=== PATIENT | female | born 1960 | race Caucasian/White ===

== ENCOUNTER 2018-08-25 07:22 | Outpatient (CLI) | payer BC ==
--- NOTE | 2018-08-25 10:01 | RAD ---
RIGHT SHOULDER TWO VIEWS: HISTORY: Shoulder impingement. 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 There are arthritic changes of the glenohumeral joint space. There has either been resection or resorption of the distal clavic le. IMPRESSION: Arthritic changes of the shoulder, as discussed above. POS: [facility]
== END 2018-08-25 07:23 | disposition home or self-care (01) ==
LOC: RAD 07:22
PROVIDERS: ATTEND Orthopaedic Surgery
DX: M75.41 Impingement syndrome of right shoulder (principal); M19.011 Primary osteoarthritis, right shoulder

== ENCOUNTER 2018-09-12 11:14 | Day surgery (SDC) | payer BC ==
[2018-09-11 11:51] VITALS: BMI 32.0
[2018-09-12] MEDS ORDERED: Lidocaine 1% PF 5 ML VIAL ONE (13:52)
[2018-09-12] MEDS ORDERED: Midazolam HCl 2 mg/2 ml Vial ONE (15:22)
[2018-09-12] MEDS ORDERED: Fentanyl 100 MCG/2 ML VIAL ONE (15:22)
--- NOTE | 2018-09-12 16:06 | RAD ---
RIGHT SHOULDER ARTHROGRAM: Date: 09-12-18 History: Right shoulder pain. Fluoroscopy: Fluoroscopy time 0.6 minutes with total dose of 32.6 mGy*cm^2. Technique: This examination was performed with conscious sedation which [facility] Informed consent was obtained prior to conscious sedation. An area overlying the superior one -third of the right glenohumeral joint was marked and the area of meticulously prepped and draped in usual sterile fashion. Skin and subcutaneous tissues were infiltrated with buffered 1% Lidocaine for local anesthesia. A 22 gauge spinal needle was advanced to the level of the right glenohumeral joint. Inter stylet was removed and contrast was injected demonstrating a free flow of contrast from the tip of the needle. As a results approximately 12 ml of a mixture consisting of 2 ml of gadolinium contra st, 8 ml of Omniopaque 300 contrast, sterile saline, Lidocaine, and a small amount of epinephrine wer e instilled into the right glenohumeral joint under fluoroscopic control. The needle was removed and hemostasis was achieved with direct pressure. Patient tolerated the proced ure well and without immediate complication. IMPRESSION: 1. Technically successful right shoulder arthrogram. 2. 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 3. 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 4. Technically successful right shoulder arthrogram. POS: [facility]
--- NOTE | 2018-09-12 17:07 | MRI ---
RIGHT SHOULDER MRI WITH IV POST GADOLINIUM ARTHROGRAPHIC CONTRAST: 09/12/18 HISTORY: Pain and impingement syndrome. Large body habitus. Exam done under full sedation. There are some subchondral cystic changes involving the greater tuberosity with probable small unders urface tear. There is some altered signal within the supraspinatus and infraspinatus tendons evidence for some tendinopathy but no evidence for a complete full thickness or retracted tear. Subscapularis tendon and biceps tendons appear intact. No evidence for significant labral tear. IMPRESSION: Supraspinatus and infraspinatus tendinopathy with some subchondral cystic changes of the greater tube rosity but no evidence for complete full thickness or retracted rotator cuff tear. Unremarkable appea ring labrum. No significant acute osteochondral defect. Rotator cuff muscles are within normal limits of signal and volume. POS: [facility]
== END 2018-09-12 17:20 | disposition home or self-care (01) ==
LOC: SDC/OP 11:14
PROVIDERS: ATTEND Radiology Vascular & Interventional Radiology
PROC: BP181ZZ Fluoroscopy of Right Shoulder using Low Osmolar Contrast (ICD-10-PCS; principal; 2018-09-12)
DX: M75.81 Other shoulder lesions, right shoulder (principal); Z88.5 Allergy status to narcotic agent; Z79.82 Long term (current) use of aspirin; Z79.84 Long term (current) use of oral hypoglycemic drugs; Z79.899 Other long term (current) drug therapy
CPT/HCPCS: 23350; J2001; J2250; J3010

== ENCOUNTER 2021-05-11 09:38 | Outpatient (CLI) | payer BC | END 2021-05-11 09:39 | disposition home or self-care (01) | LOC: CT 09:38 | PROVIDERS: ATTEND Student in an Organized Health Care Education/Training Program | DX: K21.9 Gastro-esophageal reflux disease without esophagitis (principal) | CPT/HCPCS: 74220 ==

== ENCOUNTER 2021-11-13 06:58 | Day surgery (SDC) | payer BC ==
[2021-11-10 13:32] VITALS: BMI 30.5
[2021-11-13 08:35] LABS: Anion Gap 16 mmol/L (10-20); BUN (Urea Nitrogen) 22 mg/dL (9.8-20.1); Calc. Creatinine Clearance 61 mL/min (70-130); Calcium 9.4 mg/dL (7.8-10.44); Carbon Dioxide 22 mmol/L (23-31); Cardiac Risk 4.4 (Less than 4.5); Chloride 105 mmol/L (98-107); Cholesterol 184 mg/dl (< 200 Desired); Glucose 134 mg/dL (80-115); HDL Cholesterol 42 mg/dL (>60 Neg Risk); LDL Cholesterol, Calculated 108 mg/dL; Potassium 4.4 mmol/L (3.5-5.1); Sodium 139 mmol/L (136-145); Triglycerides 169 mg/dL (Less than 150)
[2021-11-13] MEDS ORDERED: Diazepam 5 MG TAB ONE (08:54)
[2021-11-13] MEDS ORDERED: Fentanyl 100 MCG/2 ML VIAL ONE (09:26)
[2021-11-13] MEDS ORDERED: Midazolam HCl 2 mg/2 ml Vial ONE (09:26)
[2021-11-13] MEDS ORDERED: Iopamidol 370 76% 100 ML VIAL ONE (09:44)
== END 2021-11-13 14:23 | disposition home or self-care (01) ==
LOC: SDC 06:58
PROVIDERS: ATTEND Internal Medicine Cardiovascular Disease
PROC: B2111ZZ Fluoroscopy of Multiple Coronary Arteries using Low Osmolar Contrast (ICD-10-PCS; principal; 2021-11-13)
PROC: 4A023N7 Measurement of Cardiac Sampling and Pressure, Left Heart, Percutaneous Approach (ICD-10-PCS; principal; 2021-11-13)
DX: I25.10 Atherosclerotic heart disease of native coronary artery without angina pectoris (principal); I42.0 Dilated cardiomyopathy; I11.0 Hypertensive heart disease with heart failure; I50.9 Heart failure, unspecified; E11.9 Type 2 diabetes mellitus without complications; E78.2 Mixed hyperlipidemia; K21.9 Gastro-esophageal reflux disease without esophagitis; Z79.82 Long term (current) use of aspirin; Z79.84 Long term (current) use of oral hypoglycemic drugs; Z79.899 Other long term (current) drug therapy; Z88.5 Allergy status to narcotic agent; Z87.891 Personal history of nicotine dependence
CPT/HCPCS: 80048; 80061; 93458; 99152; J2250; J3010

== ENCOUNTER 2021-11-16 12:23 | Outpatient (CLI) | payer BC ==
[2021-11-16 23:32] LABS: SARS-CoV-2 PCR by NAA Not Detected (NotDetected)
== END 2021-11-16 12:24 | disposition home or self-care (01) ==
LOC: LABBT 12:23
PROVIDERS: ATTEND Thoracic Surgery (Cardiothoracic Vascular Surgery)
DX: I25.10 Atherosclerotic heart disease of native coronary artery without angina pectoris (principal); Z20.822 Contact with and (suspected) exposure to COVID-19
CPT/HCPCS: U0003; U0005

== ENCOUNTER 2021-11-16 15:30 | Inpatient (IN) | payer BC ==
[2021-11-16 11:10] VITALS: BMI 30.5
[2021-11-17] MEDS ORDERED: Dexamethasone 4 mg/ml Vial ONE (06:17)
[2021-11-17] MEDS ORDERED: EPINEPHrine 1 MG/ML AMP ONE (06:17)
[2021-11-17] MEDS ORDERED: Bupivacaine PF 0.5% 30 ML VIAL ONE (06:17)
[2021-11-17] MEDS ORDERED: Albumin 5% 500 ML ONE (06:17)
[2021-11-17] MEDS ORDERED: Midazolam HCl 5 mg/5 ml Vial ONE (06:45)
[2021-11-17] MEDS ORDERED: Fentanyl 250 MCG/5 ML VIAL ONE (06:45)
[2021-11-17] MEDS ORDERED: Lidocaine 1% MPF 2 ML VIAL ONE (06:57)
[2021-11-17] MEDS ORDERED: Heparin 10,000 UNITS/1 ML VIAL 30,000 UNITS in Sodium Chloride 0.9% 1,000 ML FS SCH (07:00)
[2021-11-17] MEDS ORDERED: Midazolam HCl 2 mg/2 ml Vial ONE (07:01)
[2021-11-17] MEDS ORDERED: ceFAZolin (BATCH) 2 GM/100 ML BAG ONE (07:14)
[2021-11-17] MEDS ORDERED: Mannitol 12.5 GM/50 ML ONE (07:43)
[2021-11-17] MEDS ORDERED: Magnesium Sulfate 1 GM/2 ML VIAL ONE (07:43)
[2021-11-17] MEDS ORDERED: DOPamine 400 MG/10 ML VIAL ONE (07:43)
[2021-11-17] MEDS ORDERED: Vecuronium 10 MG VIAL ONE (07:43)
[2021-11-17] MEDS ORDERED: Heparin 5,000 UNITS/ML VIAL ONE (07:43)
[2021-11-17] MEDS ORDERED: Protamine Sulfate 50 MG/5 ML VIAL ONE (07:43)
[2021-11-17] MEDS ORDERED: Sodium Bicarb 50 MEQ/50 ML Abboject 8.4% SYRINGE ONE (07:43)
[2021-11-17] MEDS ORDERED: Aminocaproic Acid 5 GM/20 ML VIAL ONE (07:43)
[2021-11-17] MEDS ORDERED: Papaverine 60 MG/2 ML VIAL ONE (07:43)
[2021-11-17] MEDS ORDERED: Thrombin 5000 UNITS/5 ML VIAL ONE (07:43)
[2021-11-17] MEDS ORDERED: Labetalol HCl 100 MG/20 ML VIAL ONE (07:43)
[2021-11-17] MEDS ORDERED: Calcium Chloride 1 GM/10 ML Abboject SYRINGE ONE (07:43)
[2021-11-17] MEDS ORDERED: Cardioplegic Soln 1,000 ML BAG ONE (07:43)
[2021-11-17] MEDS ORDERED: Lidocaine 1% PF 5 ML VIAL ONE (07:43)
[2021-11-17] MEDS ORDERED: PROPOFOL 200 MG/20 ML VIAL ONE (07:43)
[2021-11-17] MEDS ORDERED: Heparin 30,000 units/30 ml VIAL ONE (07:43)
[2021-11-17] MEDS ORDERED: Insulin Regular 300 UNITS/3 ML VIAL ONE (09:39)
[2021-11-17] MEDS ORDERED: Albumin 5% 250 ML ONE (09:50)
[2021-11-17] MEDS ORDERED: Promethazine HCl 25 MG/ML VIAL IM PRN (10:59)
[2021-11-17] MEDS ORDERED: Mag-Al 1200 mg/1200 mg/30 ML UDCUP PO PRN (10:59)
[2021-11-17] MEDS ORDERED: Nitroglycerin 50 MG/250 ML BOT 250 ML IVPB PRN (10:59)
[2021-11-17] MEDS ORDERED: Morphine 2 MG/ML VIAL SLOW IVP PRN (10:59)
[2021-11-17] MEDS ORDERED: Guaifenesin DM 100-10/5 ML UDCUP PO PRN (10:59)
[2021-11-17] MEDS ORDERED: Hetastarch 6% 500 ML 500 ML IVPB PRN (10:59)
[2021-11-17] MEDS ORDERED: Fentanyl 100 MCG/2 ML VIAL SLOW IVP PRN (10:59)
[2021-11-17] MEDS ORDERED: DOPamine 400 MG/D5W 250 ML 250 ML IVPB PRN (10:59)
[2021-11-17] MEDS ORDERED: niCARdipine 25 MG in Sodium Chloride 0.9% 250 ML 250 ML IVPB PRN (10:59)
[2021-11-17] MEDS ORDERED: Potassium Chloride 20 MEQ/100 ML PREMIX BAG IVPB PRN (10:59)
[2021-11-17] MEDS ORDERED: Bisacodyl 5 MG TAB PO PRN (10:59)
[2021-11-17] MEDS ORDERED: Ondansetron PF 4 MG/2 ML Vial IVP PRN (10:59)
[2021-11-17] MEDS ORDERED: Post-Op Insulin Drip Protocol IVPB ONE (10:59)
[2021-11-17] MEDS ORDERED: Bisacodyl 10 MG SUPP PR PRN (10:59)
[2021-11-17] MEDS ORDERED: D5 1/2 NS w/20 mEq KCL 1,000 ML IV SCH (11:00)
[2021-11-17] MEDS ORDERED: Magnesium 2 GM/50 ML(in water) 2 GM in Premix Bag 1 BAG IVPB SCH (11:00)
[2021-11-17] MEDS ORDERED: Dextrose 5% in Water 1,000 ML IV PRN (11:30)
[2021-11-17] MEDS ORDERED: HUMULIN R 100 UNITS in Sodium Chloride 0.9% 100 ML IVPB SCH (11:30)
[2021-11-17] MEDS ORDERED: Insulin Regular 300 UNITS/3 ML VIAL SC PRN (11:30)
[2021-11-17] MEDS ORDERED: Dextrose 50% Abboject 50 ML SYRINGE SLOW IVP PRN (11:30)
[2021-11-17] MEDS: Ketorolac Tromethamine 30 MG/ML VIAL IVP SCH ×3 (11:39→23:12)
[2021-11-17 11:46] LABS: CO2 Tension 40.1 mmHg (35.0-45.0); Carboxyhemoglobin (COHb) 0.1 gm% (0.0-3.0); Hemoglobin (Hb) 11.1 g/dL (12.0-16.0); O2 Tension (PaO2), arterial 126.6 mmHg (> 80.0); Potassium - ABG Lab 3.91 mmol/L (3.70-5.30); pH, Arterial 7.38 (7.35-7.45)
[2021-11-17 11:49] LABS: ALV-art Gradient 179.775 mmHg (0-20); Puncture Site Arterial Line
[2021-11-17 11:59] LABS: #Eosinphils 0.1 thou/uL (0.0-0.7); #Lymphocytes 1.2 thou/uL (1.20-3.40); #Monocytes 0.6 thou/uL (0.11-0.59); #Neutrophils 10.1 thou/uL (1.40-6.50); %Basophils 0.3 % (0.0-1.0); %Eosinophils 1.2 % (0.0-10.0); %Monocytes 5.2 % (0.0-10.0); %Neutrophils 83.3 % (42.0-75.0); Hemoglobin 10.4 g/dL (12.0-16.0); Mean Corpuscular HGB CONC 32.6 g/dL (32.0-36.0); Mean Corpuscular Hemoglobin 27.8 pg (27.0-31.0); Mean Corpuscular Volume 85.2 fL (78.0-98.0); Mean Platelet Volume 7.7 fL (7.4-10.4); Platelet Count 205 thou/uL (130-400); RBC Distribution Width 14.6 % (11.5-14.5); Red Blood Cell (RBC) Count 3.73 mill/uL (4.20-5.40); White Blood Cell (WBC) Count 12.1 thou/uL (4.8-10.8)
[2021-11-17 12:15] LABS: Anion Gap 13 mmol/L (10-20); BUN (Urea Nitrogen) 15 mg/dL (9.8-20.1); Calc. Creatinine Clearance 57 mL/min (70-130); Carbon Dioxide 22 mmol/L (23-31); Chloride 109 mmol/L (98-107); Glucose 86 mg/dL (80-115); Potassium 3.7 mmol/L (3.5-5.1); Sodium 140 mmol/L (136-145)
[2021-11-17 12:18] LABS: INR-International Normal Ratio 1.2; PTT 31.6 sec (22.9-36.1); Prothrombin Time 15.2 sec (12.0-14.7)
[2021-11-17 14:29] LABS: Actual Bicarbonate (HCO3a) 23.5 mEq/L (22-28); Base Excess (BEa) -2.8 mEq/L (-2.0 to +3.0); CO2 Tension 47.6 mmHg (35.0-45.0); Calcium, Ionized (arterial) 1.18 mmol/L (1.12-1.30); Carboxyhemoglobin (COHb) 0.3 gm% (0.0-3.0); Hemoglobin (Hb) 11.6 g/dL (12.0-16.0); O2 Tension (PaO2), arterial 120.8 mmHg (> 80.0); Potassium - ABG Lab 4.78 mmol/L (3.70-5.30); pH, Arterial 7.31 (7.35-7.45)
[2021-11-17 14:30] LABS: Puncture Site Arterial Line
[2021-11-17] MEDS: Fentanyl 100 MCG/2 ML VIAL SLOW IVP PRN ×3 (14:40→20:37)
[2021-11-17] MEDS: traMADol HCl 50 MG TAB PO PRN ×2 (16:28→23:11)
[2021-11-17] MEDS: Icosapent Ethyl 1 GM CAPSULE PO SCH (16:28)
[2021-11-17] MEDS: ceFAZolin (BATCH) 2 GM in Premix Bag 1 BAG IVPB SCH ×2 (16:29→23:18)
[2021-11-17 17:19] LABS: Potassium 5.4 mmol/L (3.5-5.1)
[2021-11-17] MEDS: Atorvastatin Calcium 40 MG TAB PO SCH (20:15)
[2021-11-17] MEDS ORDERED: Famotidine/PF 20 mg/2ml Vial SLOW IVP SCH (21:00)
[2021-11-18 04:09] LABS: #Lymphocytes 0.8 thou/uL (1.20-3.40); #Monocytes 0.6 thou/uL (0.11-0.59); #Neutrophils 8.7 thou/uL (1.40-6.50); %Basophils 0.1 % (0.0-1.0); %Eosinophils 0.1 % (0.0-10.0); %Lymphocytes 8.2 % (21.0-51.0); %Monocytes 5.5 % (0.0-10.0); %Neutrophils 86.1 % (42.0-75.0); Hemoglobin 9.7 g/dL (12.0-16.0); Mean Corpuscular HGB CONC 33.2 g/dL (32.0-36.0); Mean Corpuscular Hemoglobin 28.7 pg (27.0-31.0); Mean Corpuscular Volume 86.7 fL (78.0-98.0); Mean Platelet Volume 8.1 fL (7.4-10.4); Platelet Count 231 thou/uL (130-400); RBC Distribution Width 14.7 % (11.5-14.5); Red Blood Cell (RBC) Count 3.37 mill/uL (4.20-5.40); White Blood Cell (WBC) Count 10.1 thou/uL (4.8-10.8)
[2021-11-18 04:27] LABS: Anion Gap 14 mmol/L (10-20); BUN (Urea Nitrogen) 21 mg/dL (9.8-20.1); Calc. Creatinine Clearance 43 mL/min (70-130); Calcium 8.2 mg/dL (7.8-10.44); Carbon Dioxide 23 mmol/L (23-31); Chloride 106 mmol/L (98-107); Glucose 129 mg/dL (80-115); Potassium 4.8 mmol/L (3.5-5.1); Sodium 138 mmol/L (136-145)
[2021-11-18] MEDS: ceFAZolin (BATCH) 2 GM in Premix Bag 1 BAG IVPB SCH (05:13)
[2021-11-18] MEDS: Ketorolac Tromethamine 30 MG/ML VIAL IVP SCH ×4 (05:13→23:41)
[2021-11-18] MEDS ORDERED: Milk Of Magnesia 30 ML UDCUP PO PRN (08:27)
[2021-11-18] MEDS ORDERED: Mineral Oil ENEMA PR PRN (08:27)
[2021-11-18] MEDS ORDERED: Nitroglycerin 0.4 MG TAB (25 Tab Bottle) SL PRN (08:27)
[2021-11-18] MEDS ORDERED: Guaifenesin DM 100-10/5 ML UDCUP PO PRN (08:27)
[2021-11-18] MEDS ORDERED: Bisacodyl 5 MG TAB PO PRN (08:27)
[2021-11-18] MEDS ORDERED: Mag-Al 1200 mg/1200 mg/30 ML UDCUP PO PRN (08:27)
[2021-11-18] MEDS ORDERED: Bisacodyl 10 MG SUPP PR PRN (08:27)
[2021-11-18] MEDS ORDERED: Dextrose 50% Abboject 50 ML SYRINGE SLOW IVP PRN (08:45)
[2021-11-18] MEDS ORDERED: Dextrose 5% in Water 1,000 ML IV PRN (08:45)
[2021-11-18] MEDS: Ascorbic Acid 500 mg Chewable Tablet PO SCH (08:57)
[2021-11-18] MEDS: Icosapent Ethyl 1 GM CAPSULE PO SCH ×2 (08:57→17:54)
[2021-11-18] MEDS: Calcium Carbonate 600 MG + Vit D TAB PO SCH (08:58)
[2021-11-18] MEDS: Clopidogrel Bisulfate 75 MG TAB PO SCH (08:58)
[2021-11-18] MEDS: traMADol HCl 50 MG TAB PO PRN (08:59)
[2021-11-18] MEDS: Cyanocobalamin (Vitamin B-12) 1,000 MCG TAB PO SCH (08:59)
[2021-11-18] MEDS ORDERED: BIOTIN 5 MG PO SCH (09:00)
[2021-11-18] MEDS ORDERED: Aspirin 325 mg Enteric Coated Tablet PO SCH (09:00)
[2021-11-18] MEDS ORDERED: Aspirin 325 MG TAB PO SCH (09:00)
[2021-11-18] MEDS: Magnesium 2 GM/50 ML(in water) 2 GM in Premix Bag 1 BAG IVPB SCH (09:04)
[2021-11-18] MEDS: Multivitamin W/ Minerals 1 TAB PO SCH (09:04)
[2021-11-18] MEDS: Aspirin 81 mg Enteric Coated Tablet PO SCH (09:55)
[2021-11-18 10:16] LABS: Actual Bicarbonate (HCO3a) 22.8 mEq/L (22-28); Analyzer IN Cardio OR; Base Excess (BEa) -0.8 mEq/L (-2.0 to +3.0); CO2 Tension 33.5 mmHg (35.0-45.0); Calcium, Ionized (arterial) 1.05 mmol/L (1.12-1.30); Carboxyhemoglobin (COHb) 0.1 gm% (0.0-3.0); Hemoglobin (Hb) 10.4 g/dL (12.0-16.0); O2 Tension (PaO2), arterial 272.1 mmHg (> 80.0); Potassium - ABG Lab 3.96 mmol/L (3.70-5.30); pH, Arterial 7.45 (7.35-7.45)
[2021-11-18 10:16] LABS: Actual Bicarbonate (HCO3v) 26 mEq/L (22-28); Analyzer IN Cardio OR; Base Excess 1.2 mEq/L (-2.0 to +3.0); Calcium, Ionized (venous) 0.95 mmol/L (1.16-1.32); Chloride (VBG) 102 mmol/L (98-106); Hemoglobin (Hb) 7.5 g/dL (11.7-16.0); Potassium (VBG) 4.77 mmol/L (3.70-5.30); Sodium 134.2 mmol/L (133-146); pH (venous) 7.41 (7.32-7.43)
[2021-11-18 10:16] LABS: Actual Bicarbonate (HCO3a) 22.4 mEq/L (22-28); Analyzer IN Cardio OR; CO2 Tension 32.6 mmHg (35.0-45.0); Calcium, Ionized (arterial) 0.98 mmol/L (1.12-1.30); Carboxyhemoglobin (COHb) 0.3 gm% (0.0-3.0); Hemoglobin (Hb) 10.3 g/dL (12.0-16.0); O2 Tension (PaO2), arterial 445.2 mmHg (> 80.0); Potassium - ABG Lab 3.56 mmol/L (3.70-5.30); pH, Arterial 7.46 (7.35-7.45)
[2021-11-18 10:16] LABS: Actual Bicarbonate (HCO3a) 24.3 mEq/L (22-28); Analyzer IN Cardio OR; Base Excess (BEa) 0.5 mEq/L (-2.0 to +3.0); CO2 Tension 35.5 mmHg (35.0-45.0); Calcium, Ionized (arterial) 0.95 mmol/L (1.12-1.30); Carboxyhemoglobin (COHb) 0.8 gm% (0.0-3.0); Hemoglobin (Hb) 7.4 g/dL (12.0-16.0); O2 Tension (PaO2), arterial 383.6 mmHg (> 80.0); Potassium - ABG Lab 4.53 mmol/L (3.70-5.30); pH, Arterial 7.45 (7.35-7.45)
[2021-11-18 10:17] LABS: Actual Bicarbonate (HCO3a) 24.7 mEq/L (22-28); Analyzer IN Cardio OR; Base Excess (BEa) -0.1 mEq/L (-2.0 to +3.0); Calcium, Ionized (arterial) 0.96 mmol/L (1.12-1.30); Carboxyhemoglobin (COHb) 0.3 gm% (0.0-3.0); Hemoglobin (Hb) 8.3 g/dL (12.0-16.0); O2 Tension (PaO2), arterial 325.8 mmHg (> 80.0); Potassium - ABG Lab 3.98 mmol/L (3.70-5.30)
[2021-11-18 10:17] LABS: Puncture Site Arterial Line
[2021-11-18 10:17] LABS: Actual Bicarbonate (HCO3a) 23.1 mEq/L (22-28); Analyzer IN Cardio OR; Base Excess (BEa) -1.1 mEq/L (-2.0 to +3.0); CO2 Tension 36.9 mmHg (35.0-45.0); Calcium, Ionized (arterial) 1.23 mmol/L (1.12-1.30); Carboxyhemoglobin (COHb) 0.3 gm% (0.0-3.0); Hemoglobin (Hb) 10.3 g/dL (12.0-16.0); O2 Tension (PaO2), arterial 327.6 mmHg (> 80.0); Potassium - ABG Lab 3.71 mmol/L (3.70-5.30); pH, Arterial 7.42 (7.35-7.45)
[2021-11-18 10:18] LABS: Puncture Site Arterial Line
[2021-11-18 10:18] LABS: Puncture Site Arterial Line
[2021-11-18 10:19] LABS: Puncture Site Arterial Line
[2021-11-18 10:19] LABS: Puncture Site Arterial Line
[2021-11-18] MEDS ORDERED: Insulin Glargine 30 UNITS/0.3 ML VIAL SC PRN (11:21)
[2021-11-18] MEDS: Insulin Regular 300 UNITS/3 ML VIAL SC PRN (17:55)
[2021-11-18] MEDS: Atorvastatin Calcium 40 MG TAB PO SCH (20:27)
[2021-11-18] MEDS: diphenhydrAMINE 25 MG CAP PO PRN (20:28)
[2021-11-19] MEDS: Zolpidem Tartrate 5 MG TAB PO PRN (01:27)
[2021-11-19 04:54] LABS: Anion Gap 13 mmol/L (10-20); BUN (Urea Nitrogen) 29 mg/dL (9.8-20.1); Calc. Creatinine Clearance 34 mL/min (70-130); Carbon Dioxide 25 mmol/L (23-31); Chloride 101 mmol/L (98-107); Glucose 120 mg/dL (80-115); Potassium 4.5 mmol/L (3.5-5.1); Sodium 134 mmol/L (136-145)
[2021-11-19] MEDS: Ketorolac Tromethamine 30 MG/ML VIAL IVP SCH ×4 (06:12→23:12)
[2021-11-19] MEDS: Aspirin 81 mg Enteric Coated Tablet PO SCH (09:06)
[2021-11-19] MEDS: Icosapent Ethyl 1 GM CAPSULE PO SCH ×2 (09:06→18:11)
[2021-11-19] MEDS: Clopidogrel Bisulfate 75 MG TAB PO SCH (09:06)
[2021-11-19] MEDS: Ascorbic Acid 500 mg Chewable Tablet PO SCH (09:06)
[2021-11-19] MEDS: Multivitamin W/ Minerals 1 TAB PO SCH (09:07)
[2021-11-19] MEDS: Calcium Carbonate 600 MG + Vit D TAB PO SCH (09:07)
[2021-11-19] MEDS: Magnesium 2 GM/50 ML(in water) 2 GM in Premix Bag 1 BAG IVPB SCH (09:07)
[2021-11-19] MEDS: Cyanocobalamin (Vitamin B-12) 1,000 MCG TAB PO SCH (09:07)
[2021-11-19] MEDS: Acetaminophen 325 MG TAB PO PRN (16:02)
[2021-11-19] MEDS: Insulin Regular 300 UNITS/3 ML VIAL SC PRN ×2 (18:12→23:12)
[2021-11-19] MEDS: Atorvastatin Calcium 40 MG TAB PO SCH (20:43)
[2021-11-20] MEDS: traMADol HCl 50 MG TAB PO PRN ×3 (04:03→16:27)
[2021-11-20 04:34] LABS: #Eosinphils 0.2 thou/uL (0.0-0.7); #Lymphocytes 1.4 thou/uL (1.20-3.40); #Monocytes 0.5 thou/uL (0.11-0.59); #Neutrophils 4.5 thou/uL (1.40-6.50); %Basophils 0.7 % (0.0-1.0); %Eosinophils 2.7 % (0.0-10.0); %Lymphocytes 21.1 % (21.0-51.0); %Neutrophils 68.4 % (42.0-75.0); Hemoglobin 9.2 g/dL (12.0-16.0); Mean Corpuscular HGB CONC 33.2 g/dL (32.0-36.0); Mean Corpuscular Hemoglobin 28.8 pg (27.0-31.0); Mean Corpuscular Volume 86.6 fL (78.0-98.0); Mean Platelet Volume 7.4 fL (7.4-10.4); Platelet Count 198 thou/uL (130-400); Red Blood Cell (RBC) Count 3.18 mill/uL (4.20-5.40); White Blood Cell (WBC) Count 6.6 thou/uL (4.8-10.8)
[2021-11-20 04:50] LABS: Anion Gap 14 mmol/L (10-20); BUN (Urea Nitrogen) 31 mg/dL (9.8-20.1); Calc. Creatinine Clearance 48 mL/min (70-130); Calcium 8.7 mg/dL (7.8-10.44); Carbon Dioxide 22 mmol/L (23-31); Chloride 104 mmol/L (98-107); Glucose 93 mg/dL (80-115); Potassium 4.3 mmol/L (3.5-5.1); Sodium 136 mmol/L (136-145)
[2021-11-20] MEDS: Ketorolac Tromethamine 30 MG/ML VIAL IVP SCH ×2 (05:26→12:27)
[2021-11-20] MEDS: Icosapent Ethyl 1 GM CAPSULE PO SCH ×2 (10:02→16:26)
[2021-11-20] MEDS: Ascorbic Acid 500 mg Chewable Tablet PO SCH (10:02)
[2021-11-20] MEDS: Calcium Carbonate 600 MG + Vit D TAB PO SCH (10:03)
[2021-11-20] MEDS: Aspirin 81 mg Enteric Coated Tablet PO SCH (10:03)
[2021-11-20] MEDS: Clopidogrel Bisulfate 75 MG TAB PO SCH (10:03)
[2021-11-20] MEDS: Cyanocobalamin (Vitamin B-12) 1,000 MCG TAB PO SCH (10:03)
[2021-11-20] MEDS: Multivitamin W/ Minerals 1 TAB PO SCH (10:04)
[2021-11-20] MEDS: Carvedilol 3.125 MG TAB PO SCH (16:27)
[2021-11-20] MEDS: diphenhydrAMINE 25 MG CAP PO PRN (21:17)
[2021-11-20] MEDS: Atorvastatin Calcium 40 MG TAB PO SCH (21:17)
[2021-11-21] MEDS: Zolpidem Tartrate 5 MG TAB PO PRN (00:17)
[2021-11-21 05:02] LABS: Anion Gap 13 mmol/L (10-20); BUN (Urea Nitrogen) 32 mg/dL (9.8-20.1); Calc. Creatinine Clearance 61 mL/min (70-130); Calcium 8.5 mg/dL (7.8-10.44); Carbon Dioxide 23 mmol/L (23-31); Chloride 103 mmol/L (98-107); Glucose 108 mg/dL (80-115); Potassium 4.9 mmol/L (3.5-5.1); Sodium 134 mmol/L (136-145)
[2021-11-21] MEDS: Carvedilol 3.125 MG TAB PO SCH ×2 (08:26→16:08)
[2021-11-21] MEDS: Icosapent Ethyl 1 GM CAPSULE PO SCH ×2 (08:26→16:08)
[2021-11-21] MEDS: Calcium Carbonate 600 MG + Vit D TAB PO SCH (08:27)
[2021-11-21] MEDS: Ascorbic Acid 500 mg Chewable Tablet PO SCH (08:27)
[2021-11-21] MEDS: Aspirin 81 mg Enteric Coated Tablet PO SCH (08:27)
[2021-11-21] MEDS: Cyanocobalamin (Vitamin B-12) 1,000 MCG TAB PO SCH (08:28)
[2021-11-21] MEDS: Clopidogrel Bisulfate 75 MG TAB PO SCH (08:28)
[2021-11-21] MEDS: Multivitamin W/ Minerals 1 TAB PO SCH (08:28)
[2021-11-21] MEDS: Acetaminophen 325 MG TAB PO PRN ×3 (08:29→22:05)
[2021-11-21] MEDS: ALPRAZolam 0.25 MG TAB PO PRN ×2 (08:29→21:13)
[2021-11-21] MEDS: Atorvastatin Calcium 40 MG TAB PO SCH (21:13)
[2021-11-22] MEDS: traMADol HCl 50 MG TAB PO PRN ×2 (04:12→20:55)
[2021-11-22 04:40] LABS: Anion Gap 13 mmol/L (10-20); BUN (Urea Nitrogen) 30 mg/dL (9.8-20.1); Calc. Creatinine Clearance 57 mL/min (70-130); Calcium 8.6 mg/dL (7.8-10.44); Carbon Dioxide 24 mmol/L (23-31); Chloride 105 mmol/L (98-107); Glucose 106 mg/dL (80-115); Potassium 5.1 mmol/L (3.5-5.1); Sodium 137 mmol/L (136-145)
[2021-11-22] MEDS: Furosemide 40 MG TAB PO SCH (08:20)
[2021-11-22] MEDS: Carvedilol 3.125 MG TAB PO SCH ×2 (08:21→16:32)
[2021-11-22] MEDS: Icosapent Ethyl 1 GM CAPSULE PO SCH ×2 (08:21→16:32)
[2021-11-22] MEDS: Acetaminophen 325 MG TAB PO PRN ×2 (08:23→16:37)
[2021-11-22] MEDS: Calcium Carbonate 600 MG + Vit D TAB PO SCH (09:37)
[2021-11-22] MEDS: Clopidogrel Bisulfate 75 MG TAB PO SCH (09:37)
[2021-11-22] MEDS: Ascorbic Acid 500 mg Chewable Tablet PO SCH (09:37)
[2021-11-22] MEDS: Aspirin 81 mg Enteric Coated Tablet PO SCH (09:37)
[2021-11-22] MEDS: Multivitamin W/ Minerals 1 TAB PO SCH (09:38)
[2021-11-22] MEDS: Cyanocobalamin (Vitamin B-12) 1,000 MCG TAB PO SCH (09:38)
[2021-11-22] MEDS: Atorvastatin Calcium 40 MG TAB PO SCH (20:50)
[2021-11-22] MEDS: ALPRAZolam 0.25 MG TAB PO PRN (22:28)
[2021-11-23 05:18] LABS: Anion Gap 13 mmol/L (10-20); BUN (Urea Nitrogen) 23 mg/dL (9.8-20.1); Calc. Creatinine Clearance 65 mL/min (70-130); Calcium 8.7 mg/dL (7.8-10.44); Carbon Dioxide 25 mmol/L (23-31); Chloride 103 mmol/L (98-107); Glucose 107 mg/dL (80-115); Potassium 4.5 mmol/L (3.5-5.1); Sodium 136 mmol/L (136-145)
[2021-11-23] MEDS: Icosapent Ethyl 1 GM CAPSULE PO SCH (07:44)
[2021-11-23] MEDS: Carvedilol 3.125 MG TAB PO SCH (07:44)
[2021-11-23] MEDS: Furosemide 40 MG TAB PO SCH (07:44)
[2021-11-23 08:42] VITALS: TEMP 98
[2021-11-23] MEDS: Clopidogrel Bisulfate 75 MG TAB PO SCH (09:32)
[2021-11-23] MEDS: Aspirin 81 mg Enteric Coated Tablet PO SCH (09:32)
[2021-11-23] MEDS: Calcium Carbonate 600 MG + Vit D TAB PO SCH (09:32)
[2021-11-23] MEDS: Multivitamin W/ Minerals 1 TAB PO SCH (09:32)
[2021-11-23] MEDS: Ascorbic Acid 500 mg Chewable Tablet PO SCH (09:32)
[2021-11-23] MEDS: Cyanocobalamin (Vitamin B-12) 1,000 MCG TAB PO SCH (09:32)
[2021-11-23 11:33] VITALS: BP 131/76
== END 2021-11-23 11:30 | disposition home or self-care (01) | DRG 236 ==
LOC: SURG A 11-17 06:07 → CCU 11-17 10:15 → 2NO 11-18 10:08
PROVIDERS: ADMIT Thoracic Surgery (Cardiothoracic Vascular Surgery); ATTEND Thoracic Surgery (Cardiothoracic Vascular Surgery)
PROC: 021209W Bypass Coronary Artery, Three Arteries from Aorta with Autologous Venous Tissue, Open Approach (ICD-10-PCS; principal; 2021-11-17)
PROC: 02100Z9 Bypass Coronary Artery, One Artery from Left Internal Mammary, Open Approach (ICD-10-PCS; 2021-11-17)
PROC: 06BQ4ZZ Excision of Left Saphenous Vein, Percutaneous Endoscopic Approach (ICD-10-PCS; 2021-11-17)
PROC: 02L70CK Occlusion of Left Atrial Appendage with Extraluminal Device, Open Approach (ICD-10-PCS; 2021-11-17)
PROC: 30233N1 Transfusion of Nonautologous Red Blood Cells into Peripheral Vein, Percutaneous Approach (ICD-10-PCS; 2021-11-17)
PROC: 02HV33Z Insertion of Infusion Device into Superior Vena Cava, Percutaneous Approach (ICD-10-PCS; 2021-11-17)
PROC: 5A1221Z Performance of Cardiac Output, Continuous (ICD-10-PCS; 2021-11-17)
DX: I25.10 Atherosclerotic heart disease of native coronary artery without angina pectoris (principal); E78.5 Hyperlipidemia, unspecified; E11.9 Type 2 diabetes mellitus without complications; K76.0 Fatty (change of) liver, not elsewhere classified; K21.9 Gastro-esophageal reflux disease without esophagitis; I25.5 Ischemic cardiomyopathy; F41.9 Anxiety disorder, unspecified; I11.0 Hypertensive heart disease with heart failure; I50.9 Heart failure, unspecified; I42.0 Dilated cardiomyopathy; D64.9 Anemia, unspecified; Z90.710 Acquired absence of both cervix and uterus; Z90.49 Acquired absence of other specified parts of digestive tract; Z88.5 Allergy status to narcotic agent; Z98.890 Other specified postprocedural states; Z79.899 Other long term (current) drug therapy; Z79.82 Long term (current) use of aspirin; Z79.84 Long term (current) use of oral hypoglycemic drugs
CPT/HCPCS: 36415; 36416; 36430; 71045; 80048; 82805; 85025; 85610; 85730; 86850; 86900; 86901; 93005; 93010; 93306; 93312; 93798; 94002; 97139; C1751; C1776; J0171; J0690; J1100; J1265; J1644; J1815; J1885; J2150; J2250; J2440; J2704; J2720; J3010; J3370; J3475; J3480; J3490; P9016; P9045; S0017; S0020; S0028

== ENCOUNTER 2022-03-31 09:57 | Outpatient (CLI) | payer BC | END 2022-03-31 09:58 | disposition home or self-care (01) | LOC: BICMAMMO 09:57 | PROVIDERS: ATTEND Internal Medicine | DX: Z12.31 Encounter for screening mammogram for malignant neoplasm of breast (principal) | CPT/HCPCS: 77063; 77067 ==